=== PATIENT | male | born 1935 | race Caucasian/White ===

== ENCOUNTER 2018-06-12 05:53 | Inpatient (IN) | payer MEDICARE, MEDICAID ==
[~2018-06-12] VITALS: Ht 165.1 cm; Wt 80.7 kg
[2018-06-12] MEDS ORDERED: DEXT 5%/LACTATED RINGERS 1,000 ML IV SCH (07:45)
[2018-06-12 07:55] LABS: BASOPHILS % 0.4 % (0.0-2.0); EOSINOPHILS % 1.7 % (0.0-5.0); HEMATOCRIT. 35.3 % (42.0-52.0); HEMOGLOBIN. 11.5 g/dL (14.0-18.0); LYMPHOCYTES % 15.3 % (20.0-50.0); MEAN CORPUSCULAR HEMOGLOBIN 26.1 pg (28.0-32.0); MEAN PLATELET VOLUME 7.6 fl (7.4-10.4); MONOCYTES % 7.5 % (2.0-8.0); NEUTROPHILS % 75.1 % (40.0-76.0); PLATELET 268 x1000/uL (130-400); RED BLOOD CELL COUNT 4.41 mill/uL (4.7-6.1); RED CELL DISTRIBUTION WIDTH 17.6 % (11.6-14.6)
[2018-06-12] MEDS ORDERED: THROMBIN (BOVINE) 5000 UNITS/VIAL TOP ONE ×2 (07:56→07:57)
[2018-06-12 07:57] LABS: CLARITY URINE CLEAR (CLEAR); COLOR URINE YELLOW (YELLOW); KETONES URINE NEGATIVE (NEGATIVE); LEUKOCYTE ESTERASE URINE NEGATIVE (NEGATIVE); NITRITE URINE NEGATIVE (NEGATIVE); OCCULT BLOOD URINE NEGATIVE (NEGATIVE); PROTEIN URINE NEGATIVE (NEGATIVE); SPECIFIC GRAVITY URINE 1.007 (1.005-1.030); UROBILINOGEN URINE 0.2 E.U./dL (0.2-1.0)
[2018-06-12] MEDS ORDERED: NORMAL SALINE 0.9% 10 ML SYR ONE (07:57)
[2018-06-12] MEDS ORDERED: BACITRACIN 50,000 UNITS/VIAL ONE (07:59)
[2018-06-12] MEDS ORDERED: LIDOCAINE HCL/EPINEPHRINE 1%-EPI 1:100,000 20 ML VIAL ONE (07:59)
[2018-06-12 08:01] LABS: CHLORIDE 110 mEq/L (98-107)
[2018-06-12 08:04] LABS: INR 1.1; PROTHROMBIN TIME 10.9 sec (9.1-11.1)
[2018-06-12] MEDS ORDERED: HYDROMORPHONE HCL/PF 2MG/ML (OR) ONE (09:34)
[2018-06-12] MEDS ORDERED: ROCURONIUM BROMIDE 10MG/ML VIAL 5ML IV ONE (09:35)
[2018-06-12] MEDS ORDERED: MIDAZOLAM HCL 2 MG/2 ML VIAL ONE (09:35)
[2018-06-12] MEDS ORDERED: PROPOFOL 200MG/20ML VIAL IV ONE (09:35)
[2018-06-12] MEDS ORDERED: FENTANYL CITRATE/PF 50MCG/ML 5ML VIAL ONE (09:35)
[2018-06-12] MEDS ORDERED: HYDROCODONE/APAP 7.5/325MG 1 TAB TABLET PO PRN (09:45)
[2018-06-12] MEDS ORDERED: GABA-531 PO (09:45)
[2018-06-12] MEDS ORDERED: TAMS0.4C31 PO (09:45)
[2018-06-12] MEDS ORDERED: LISI10TA5 PO (09:45)
[2018-06-12] MEDS ORDERED: GLIP10TA10 PO (09:45)
[2018-06-12] MEDS ORDERED: CLONIDINE 0.1MG TABLET PO PRN (09:45)
[2018-06-12] MEDS ORDERED: ONDANSETRON HCL 4MG/2ML INJ IV PRN (09:45)
[2018-06-12] MEDS ORDERED: FERR325T6 PO (09:45)
[2018-06-12] MEDS ORDERED: LISI-186 PO (09:45)
[2018-06-12] MEDS ORDERED: METF-415 PO (09:45)
[2018-06-12] MEDS ORDERED: ASPI-1159 PO (09:45)
[2018-06-12] MEDS ORDERED: DEXTROSE 50% WATER 50ML SYRINGE IV ONE (11:10)
[2018-06-12] MEDS ORDERED: GLYCOPYRROLATE 0.2 MG/ML 2ML VIAL ONE (12:22)
[2018-06-12] MEDS ORDERED: MORPHINE SULFATE 4 MG/ML CPJ (NOT FOR IM USE) IV PRN (12:45)
[2018-06-12] MEDS ORDERED: CEFAZOLIN SODIUM 1000MG/VIAL IV SCH (14:00)
[2018-06-12] MEDS ORDERED: ONDANSETRON INJ IV PRN (14:15)
[2018-06-12] MEDS ORDERED: NALOXONE INJ IV PRN (14:15)
[2018-06-12] MEDS ORDERED: HYDROMORPHONE PCA 10MG/50ML IV PRN (14:15)
[2018-06-12] MEDS ORDERED: DIPHENHYDRAMINE INJ IV PRN (14:15)
[2018-06-12] MEDS ORDERED: MORPHINE PCA 50MG/50ML IV PRN (14:15)
[2018-06-12 16:00] VITALS: BP 111/89
[2018-06-12 17:16] VITALS: BP 111/89
[2018-06-12] MEDS: DEXT 5%/LACTATED RINGERS 1,000 ML IV SCH (17:20)
[2018-06-12 20:00] VITALS: BP 133/71
[2018-06-12] MEDS: CEFAZOLIN 1000MG PREMIX 50 ML IV SCH (21:29)
[2018-06-13] VITALS: BP 128/52
[2018-06-13 04:00] VITALS: BP 103/57
[2018-06-13] MEDS: CEFAZOLIN 1000MG PREMIX 50 ML IV SCH ×3 (06:02→21:45)
[2018-06-13 08:00] VITALS: BP 119/62
[2018-06-13 12:00] VITALS: BP 133/65
[2018-06-13 16:00] VITALS: BP 129/71
[2018-06-13 20:00] VITALS: BP 156/71
[2018-06-13] MEDS: DEXT 5%/LACTATED RINGERS 1,000 ML IV SCH (21:47)
[2018-06-13] MEDS ORDERED: DEXTROSE 50% WATER 50ML SYRINGE IV PRN (23:15)
[2018-06-13 23:33] LABS: TOTAL IRON BINDING CAPACITY 288 ug/dL (250-450)
[2018-06-14] VITALS: BP 126/66
[2018-06-14 04:00] VITALS: BP 145/72
[2018-06-14] MEDS: CEFAZOLIN 1000MG PREMIX 50 ML IV SCH ×3 (06:09→22:03)
[2018-06-14] MEDS: INSULIN LISPRO 100 UNITS/ML SUBCUT SCH ×4 (07:10→21:00)
[2018-06-14] MEDS: BLOOD SUGAR DIAGNOSTIC STRIP TEST SCH ×4 (07:20→21:00)
[2018-06-14 07:40] LABS: BASOPHILS % 0.4 % (0.0-2.0); CHLORIDE 102 mEq/L (98-107); HEMATOCRIT. 33.2 % (42.0-52.0); HEMOGLOBIN. 11.1 g/dL (14.0-18.0); LYMPHOCYTES % 7.6 % (20.0-50.0); MEAN CORPUSCULAR HEMOGLOBIN 26.4 pg (28.0-32.0); MEAN PLATELET VOLUME 7.8 fl (7.4-10.4); MONOCYTES % 8.7 % (2.0-8.0); NEUTROPHILS % 83.3 % (40.0-76.0); PLATELET 233 x1000/uL (130-400); RED CELL DISTRIBUTION WIDTH 17.3 % (11.6-14.6)
[2018-06-14 08:00] VITALS: BP 145/70
[2018-06-14] MEDS: DEXT 5%/LACTATED RINGERS 1,000 ML IV SCH (09:36)
[2018-06-14 12:00] VITALS: BP 155/67
[2018-06-14] MEDS ORDERED: ACETAMINOPHEN 325MG TABLET PO PRN (13:30)
[2018-06-14 16:00] VITALS: BP 163/76
[2018-06-14] MEDS: DOCUSATE SODIUM 100MG CAPSULE PO SCH (16:55)
[2018-06-14] MEDS: FERROUS SULFATE 325MG TABLET PO SCH (18:02)
[2018-06-14 20:00] VITALS: BP 162/81
[2018-06-14] MEDS ORDERED: POLYETHYLENE GLYCOL 3350 (17GM) 1 DOSE PACK PO SCH (21:00)
[2018-06-15] VITALS: BP 139/74
[2018-06-15 04:00] VITALS: BP 125/53
[2018-06-15] MEDS: DEXT 5%/LACTATED RINGERS 1,000 ML IV SCH ×2 (04:40→08:47)
[2018-06-15] MEDS: PANTOPRAZOLE 40MG DR TABLET PO SCH ×2 (06:56→08:39)
[2018-06-15] MEDS: BLOOD SUGAR DIAGNOSTIC STRIP TEST SCH ×3 (06:58→17:20)
[2018-06-15 08:00] VITALS: BP 115/61
[2018-06-15 08:09] LABS: BASOPHILS % 0.3 % (0.0-2.0); EOSINOPHILS % 0.1 % (0.0-5.0); HEMATOCRIT. 29.5 % (42.0-52.0); HEMOGLOBIN. 9.9 g/dL (14.0-18.0); MEAN CORPUSCULAR HEMOGLOBIN 26.5 pg (28.0-32.0); MEAN PLATELET VOLUME 7.8 fl (7.4-10.4); MONOCYTES % 9.6 % (2.0-8.0); PLATELET 206 x1000/uL (130-400); RED BLOOD CELL COUNT 3.73 mill/uL (4.7-6.1); RED CELL DISTRIBUTION WIDTH 16.8 % (11.6-14.6)
[2018-06-15 08:18] LABS: CHLORIDE 98 mEq/L (98-107)
[2018-06-15] MEDS: DOCUSATE SODIUM 100MG CAPSULE PO SCH ×2 (08:39→17:00)
[2018-06-15] MEDS: FERROUS SULFATE 325MG TABLET PO SCH ×2 (08:39→12:50)
[2018-06-15] MEDS: INSULIN LISPRO 100 UNITS/ML SUBCUT SCH ×3 (08:45→18:58)
[2018-06-15 12:00] VITALS: BP 131/57
[2018-06-15 16:00] VITALS: BP_SYST 137; BP_SYST 165; BP_DIAS 54; BP_DIAS 72
[2018-06-15] MEDS ORDERED: ZOLPIDEM TARTRATE 5MG TABLET PO PRN (16:45)
[2018-06-15] MEDS ORDERED: ALPRAZOLAM 0.5 MG TABLET PO NR (16:45)
[2018-06-15 17:54] VITALS: BP 165/72
== END 2018-06-15 18:54 | DRG 459 ==
LOC: OR 05:53 → 6EST 05:54
PROVIDERS: ADMIT Neurological Surgery; ATTEND Internal Medicine
PROC: 0SG0071 Fusion of Lumbar Vertebral Joint with Autologous Tissue Substitute, Posterior Approach, Posterior Column, Open Approach (ICD-10-PCS; principal; 2018-06-12)
PROC: 01NB0ZZ Release Lumbar Nerve, Open Approach (ICD-10-PCS; 2018-06-12)
PROC: 0SB20ZZ Excision of Lumbar Vertebral Disc, Open Approach (ICD-10-PCS; 2018-06-12)
DX: M48.061 Spinal stenosis, lumbar region without neurogenic claudication (principal); G92 Toxic encephalopathy; E46 Unspecified protein-calorie malnutrition; E87.1 Hypo-osmolality and hyponatremia; G82.20 Paraplegia, unspecified; M51.26 Other intervertebral disc displacement, lumbar region; I10 Essential (primary) hypertension; D50.9 Iron deficiency anemia, unspecified; M47.816 Spondylosis without myelopathy or radiculopathy, lumbar region; E11.65 Type 2 diabetes mellitus with hyperglycemia; R26.9 Unspecified abnormalities of gait and mobility; Z79.82 Long term (current) use of aspirin; Z79.84 Long term (current) use of oral hypoglycemic drugs; Z79.899 Other long term (current) drug therapy; Z85.07 Personal history of malignant neoplasm of pancreas; Z92.21 Personal history of antineoplastic chemotherapy; Z92.3 Personal history of irradiation; Z68.29 Body mass index [BMI] 29.0-29.9, adult; Z90.49 Acquired absence of other specified parts of digestive tract; Z82.49 Family history of ischemic heart disease and other diseases of the circulatory system; Z83.3 Family history of diabetes mellitus
CPT/HCPCS: 36415; 72100; 76000; 80048; 82728; 82962; 83036; 83540; 83550; 84145; 88304; 88311; 95925; 95926; 95928; 95929; 97116; 97162; 97166; 97530; C1713; J0690; J1170; J1815; J2250; J2405; J2704; J3010; J3490; J7040; J7121

== ENCOUNTER 2018-06-15 18:45 | Inpatient (IN) | payer MEDICARE, MEDICAID ==
[~2018-06-15] VITALS: Ht 165.1 cm; Wt 80.7 kg
[~2018-06-15 18:45] MED LIST: ASPI-1159 PO; FERR325T6 PO; GABA-531 PO; GLIP10TA10 PO; LISI-186 PO; LISI10TA5 PO; METF-415 PO; TAMS0.4C31 PO
[2018-06-15 20:00] VITALS: BP 129/63
[2018-06-15] MEDS: INSULIN LISPRO 100 UNITS/ML SUBCUT SCH (22:00)
[2018-06-15] MEDS ORDERED: DEXTROSE 50% WATER 50ML SYRINGE IV PRN (22:00)
[2018-06-15] MEDS ORDERED: MORPHINE SULFATE 4 MG/ML CPJ (NOT FOR IM USE) IV PRN (22:00)
[2018-06-15] MEDS ORDERED: ACETAMINOPHEN 325MG TABLET PO PRN (22:00)
[2018-06-15] MEDS ORDERED: CLONIDINE 0.1MG TABLET PO PRN (22:00)
[2018-06-15] MEDS ORDERED: HYDROCODONE/APAP 7.5/325MG 1 TAB TABLET PO PRN (22:00)
[2018-06-15] MEDS ORDERED: ONDANSETRON HCL 4MG/2ML INJ IV PRN (22:00)
[2018-06-15] MEDS: POLYETHYLENE GLYCOL 3350 (17GM) 1 DOSE PACK PO SCH (22:31)
[2018-06-15] MEDS: BLOOD SUGAR DIAGNOSTIC STRIP TEST SCH (22:31)
[2018-06-16] MEDS: PANTOPRAZOLE 40MG DR TABLET PO SCH (06:36)
[2018-06-16] MEDS: BLOOD SUGAR DIAGNOSTIC STRIP TEST SCH ×4 (06:36→20:45)
[2018-06-16] MEDS: INSULIN LISPRO 100 UNITS/ML SUBCUT SCH ×4 (06:40→21:13)
[2018-06-16 06:45] LABS: BASOPHILS % 0.3 % (0.0-2.0); EOSINOPHILS % 0.4 % (0.0-5.0); HEMATOCRIT. 31.5 % (42.0-52.0); HEMOGLOBIN. 10.6 g/dL (14.0-18.0); MEAN CORPUSCULAR HEMOGLOBIN 26.4 pg (28.0-32.0); MEAN CORPUSCULAR VOLUME 78.8 fL (80.0-94.0); MEAN PLATELET VOLUME 8.1 fl (7.4-10.4); MONOCYTES % 8.5 % (2.0-8.0); NEUTROPHILS % 81.8 % (40.0-76.0); PLATELET 249 x1000/uL (130-400); RED CELL DISTRIBUTION WIDTH 16.6 % (11.6-14.6)
[2018-06-16 08:00] VITALS: BP 132/51
[2018-06-16 08:08] VITALS: BP 138/72
[2018-06-16] MEDS: DOCUSATE SODIUM 100MG CAPSULE PO SCH ×2 (08:49→18:04)
[2018-06-16] MEDS: FERROUS SULFATE 325MG TABLET PO SCH ×3 (08:49→18:03)
[2018-06-16 09:05] LABS: CHLORIDE 97 mEq/L (98-107)
[2018-06-16 20:00] VITALS: BP 156/70
[2018-06-16] MEDS: POLYETHYLENE GLYCOL 3350 (17GM) 1 DOSE PACK PO SCH (20:34)
[2018-06-17] MEDS: BLOOD SUGAR DIAGNOSTIC STRIP TEST SCH ×4 (06:16→21:17)
[2018-06-17] MEDS: PANTOPRAZOLE 40MG DR TABLET PO SCH (06:16)
[2018-06-17 06:26] LABS: BASOPHILS % 0.1 % (0.0-2.0); EOSINOPHILS % 0.3 % (0.0-5.0); HEMATOCRIT. 32.1 % (42.0-52.0); HEMOGLOBIN. 10.8 g/dL (14.0-18.0); LYMPHOCYTES % 11.3 % (20.0-50.0); MEAN CORPUSCULAR HEMOGLOBIN 26.5 pg (28.0-32.0); MEAN CORPUSCULAR VOLUME 78.8 fL (80.0-94.0); MEAN PLATELET VOLUME 7.6 fl (7.4-10.4); MONOCYTES % 10.6 % (2.0-8.0); NEUTROPHILS % 77.7 % (40.0-76.0); PLATELET 264 x1000/uL (130-400); RED BLOOD CELL COUNT 4.07 mill/uL (4.7-6.1); RED CELL DISTRIBUTION WIDTH 16.6 % (11.6-14.6)
[2018-06-17] MEDS: INSULIN LISPRO 100 UNITS/ML SUBCUT SCH ×4 (06:44→21:00)
[2018-06-17 06:57] LABS: CHLORIDE 94 mEq/L (98-107)
[2018-06-17 07:14] LABS: HDL CHOLESTEROL 38 mg/dL (40-59)
[2018-06-17 07:15] LABS: LDL CHOLESTEROL 42 mg/dL (5-100)
[2018-06-17] MEDS: FERROUS SULFATE 325MG TABLET PO SCH ×3 (08:48→16:16)
[2018-06-17] MEDS: DOCUSATE SODIUM 100MG CAPSULE PO SCH ×2 (08:48→16:16)
[2018-06-17] MEDS ORDERED: MAGNESIUM 4 G PREMIX 100 ML IV NR (11:00)
[2018-06-17] MEDS ORDERED: LACTULOSE 20G/30ML UDC PO PRN (12:45)
[2018-06-17] MEDS: GLIPIZIDE 10MG TABLET PO SCH ×2 (14:40→16:16)
[2018-06-17] MEDS: LISINOPRIL 5MG TABLET PO SCH ×2 (14:44→21:17)
[2018-06-17] MEDS: TAMSULOSIN HCL 0.4MG SR CAPSULE PO SCH (14:44)
[2018-06-17] MEDS ORDERED: ONDANSETRON HCL 4MG TABLET PO PRN (15:30)
[2018-06-17] MEDS ORDERED: MAGNESIUM 2 G PREMIX 50 ML IV NR (18:00)
[2018-06-17] MEDS: LACTULOSE 20G/30ML UDC PO SCH ×2 (18:35→21:00)
[2018-06-17 20:00] VITALS: BP 122/59
[2018-06-17] MEDS: POLYETHYLENE GLYCOL 3350 (17GM) 1 DOSE PACK PO SCH (21:17)
[2018-06-18] MEDS: BLOOD SUGAR DIAGNOSTIC STRIP TEST SCH ×4 (06:19→21:00)
[2018-06-18] MEDS: PANTOPRAZOLE 40MG DR TABLET PO SCH (06:19)
[2018-06-18 06:29] LABS: BASOPHILS % 0.2 % (0.0-2.0); EOSINOPHILS % 0.8 % (0.0-5.0); HEMATOCRIT. 31.2 % (42.0-52.0); HEMOGLOBIN. 10.4 g/dL (14.0-18.0); LYMPHOCYTES % 12.4 % (20.0-50.0); MEAN CORPUSCULAR VOLUME 78.4 fL (80.0-94.0); MEAN PLATELET VOLUME 7.6 fl (7.4-10.4); MONOCYTES % 9.8 % (2.0-8.0); NEUTROPHILS % 76.8 % (40.0-76.0); PLATELET 266 x1000/uL (130-400); RED BLOOD CELL COUNT 3.98 mill/uL (4.7-6.1); RED CELL DISTRIBUTION WIDTH 16.4 % (11.6-14.6)
[2018-06-18 06:36] LABS: CHLORIDE 94 mEq/L (98-107)
[2018-06-18 06:44] LABS: PROSTRATE SPECIFIC AG TOTAL 2.18 ng/mL (0.0-4.0)
[2018-06-18 06:59] LABS: PHOSPHORUS 3.5 mg/dL (2.5-4.9); TOTAL IRON BINDING CAPACITY 232 ug/dL (250-450)
[2018-06-18 07:02] LABS: CREATINE KINASE 88 IU/L (39-308)
[2018-06-18 07:59] VITALS: BP 119/63
[2018-06-18] MEDS: GLIPIZIDE 10MG TABLET PO SCH ×2 (08:48→17:07)
[2018-06-18] MEDS: FERROUS SULFATE 325MG TABLET PO SCH ×3 (08:48→17:07)
[2018-06-18] MEDS: LACTULOSE 20G/30ML UDC PO SCH ×2 (08:48→17:07)
[2018-06-18] MEDS: LISINOPRIL 5MG TABLET PO SCH ×2 (08:48→22:36)
[2018-06-18] MEDS: DOCUSATE SODIUM 100MG CAPSULE PO SCH ×2 (08:49→17:07)
[2018-06-18] MEDS: TAMSULOSIN HCL 0.4MG SR CAPSULE PO SCH (08:49)
[2018-06-18] MEDS: INSULIN LISPRO 100 UNITS/ML SUBCUT SCH ×4 (09:00→21:00)
[2018-06-18] MEDS ORDERED: POTASSIUM CHLORIDE 20MEQ TABLET SR PO SCH (13:00)
[2018-06-18 20:00] VITALS: BP 137/65
[2018-06-18] MEDS: POLYETHYLENE GLYCOL 3350 (17GM) 1 DOSE PACK PO SCH (21:00)
[2018-06-19] MEDS: BLOOD SUGAR DIAGNOSTIC STRIP TEST SCH ×4 (06:11→20:49)
[2018-06-19] MEDS: PANTOPRAZOLE 40MG DR TABLET PO SCH (06:12)
[2018-06-19] MEDS: INSULIN LISPRO 100 UNITS/ML SUBCUT SCH ×4 (06:19→20:39)
[2018-06-19 06:26] LABS: BASOPHILS % 0.5 % (0.0-2.0); EOSINOPHILS % 1.6 % (0.0-5.0); HEMATOCRIT. 30.6 % (42.0-52.0); HEMOGLOBIN. 10.3 g/dL (14.0-18.0); LYMPHOCYTES % 17.5 % (20.0-50.0); MEAN CORPUSCULAR HEMOGLOBIN 26.5 pg (28.0-32.0); MEAN PLATELET VOLUME 7.4 fl (7.4-10.4); MONOCYTES % 10.2 % (2.0-8.0); NEUTROPHILS % 70.2 % (40.0-76.0); PLATELET 269 x1000/uL (130-400); RED BLOOD CELL COUNT 3.87 mill/uL (4.7-6.1); RED CELL DISTRIBUTION WIDTH 16.9 % (11.6-14.6)
[2018-06-19 08:05] LABS: CHLORIDE 100 mEq/L (98-107)
[2018-06-19 08:13] VITALS: BP 131/87
[2018-06-19] MEDS: LISINOPRIL 5MG TABLET PO SCH ×2 (09:32→20:48)
[2018-06-19] MEDS: GLIPIZIDE 10MG TABLET PO SCH ×2 (09:32→18:14)
[2018-06-19] MEDS: FERROUS SULFATE 325MG TABLET PO SCH ×3 (09:32→18:14)
[2018-06-19] MEDS: DOCUSATE SODIUM 100MG CAPSULE PO SCH ×2 (09:32→17:00)
[2018-06-19] MEDS: TAMSULOSIN HCL 0.4MG SR CAPSULE PO SCH (09:32)
[2018-06-19] MEDS: LACTULOSE 20G/30ML UDC PO SCH ×2 (09:33→17:00)
[2018-06-19 20:00] VITALS: BP 114/59
[2018-06-19] MEDS: POLYETHYLENE GLYCOL 3350 (17GM) 1 DOSE PACK PO SCH (20:38)
[2018-06-19] MEDS: ZOLPIDEM TARTRATE 5MG TABLET PO PRN (20:49)
[2018-06-20] MEDS: PANTOPRAZOLE 40MG DR TABLET PO SCH (06:07)
[2018-06-20] MEDS: BLOOD SUGAR DIAGNOSTIC STRIP TEST SCH ×4 (06:07→21:00)
[2018-06-20 07:15] LABS: CHLORIDE 100 mEq/L (98-107)
[2018-06-20 07:30] LABS: BASOPHILS % 0.5 % (0.0-2.0); EOSINOPHILS % 1.2 % (0.0-5.0); HEMATOCRIT. 32.1 % (42.0-52.0); HEMOGLOBIN. 10.6 g/dL (14.0-18.0); MEAN CORPUSCULAR HEMOGLOBIN 26.2 pg (28.0-32.0); MEAN CORPUSCULAR VOLUME 79.5 fL (80.0-94.0); MEAN PLATELET VOLUME 7.6 fl (7.4-10.4); MONOCYTES % 7.7 % (2.0-8.0); NEUTROPHILS % 73.6 % (40.0-76.0); PLATELET 306 x1000/uL (130-400); RED BLOOD CELL COUNT 4.03 mill/uL (4.7-6.1); RED CELL DISTRIBUTION WIDTH 16.9 % (11.6-14.6)
[2018-06-20 08:07] VITALS: BP 108/64
[2018-06-20] MEDS: LISINOPRIL 5MG TABLET PO SCH ×2 (08:45→21:10)
[2018-06-20] MEDS: FERROUS SULFATE 325MG TABLET PO SCH ×3 (08:45→17:17)
[2018-06-20] MEDS: DOCUSATE SODIUM 100MG CAPSULE PO SCH ×2 (08:45→17:00)
[2018-06-20] MEDS: TAMSULOSIN HCL 0.4MG SR CAPSULE PO SCH (08:45)
[2018-06-20] MEDS: GLIPIZIDE 10MG TABLET PO SCH ×2 (08:46→17:17)
[2018-06-20] MEDS: LACTULOSE 20G/30ML UDC PO SCH ×2 (08:46→17:00)
[2018-06-20] MEDS: INSULIN LISPRO 100 UNITS/ML SUBCUT SCH ×4 (08:46→21:00)
[2018-06-20 20:00] VITALS: BP 130/66
[2018-06-20] MEDS: POLYETHYLENE GLYCOL 3350 (17GM) 1 DOSE PACK PO SCH (21:00)
[2018-06-20] MEDS: ZOLPIDEM TARTRATE 5MG TABLET PO PRN (21:19)
[2018-06-21] MEDS: BLOOD SUGAR DIAGNOSTIC STRIP TEST SCH ×4 (06:30→21:22)
[2018-06-21 08:00] VITALS: BP_SYST 169; BP_SYST 93; BP_DIAS 47; BP_DIAS 78
[2018-06-21] MEDS: INSULIN LISPRO 100 UNITS/ML SUBCUT SCH ×4 (09:00→21:00)
[2018-06-21] MEDS: LISINOPRIL 5MG TABLET PO SCH ×2 (09:00→21:18)
[2018-06-21] MEDS: LACTULOSE 20G/30ML UDC PO SCH (09:00)
[2018-06-21] MEDS: FERROUS SULFATE 325MG TABLET PO SCH ×3 (09:31→16:41)
[2018-06-21] MEDS: FAMOTIDINE 20MG TABLET PO SCH ×2 (09:31→21:19)
[2018-06-21] MEDS: TAMSULOSIN HCL 0.4MG SR CAPSULE PO SCH (09:31)
[2018-06-21] MEDS: GLIPIZIDE 10MG TABLET PO SCH ×2 (09:32→16:41)
[2018-06-21] MEDS: DOCUSATE SODIUM 100MG CAPSULE PO SCH ×2 (09:32→16:41)
[2018-06-21 20:00] VITALS: BP 133/69
[2018-06-21] MEDS: POLYETHYLENE GLYCOL 3350 (17GM) 1 DOSE PACK PO SCH (21:18)
[2018-06-22] MEDS: BLOOD SUGAR DIAGNOSTIC STRIP TEST SCH (06:31)
[2018-06-22] MEDS: INSULIN LISPRO 100 UNITS/ML SUBCUT SCH (06:31)
[2018-06-22 06:38] LABS: BASOPHILS % 0.3 % (0.0-2.0); EOSINOPHILS % 1.4 % (0.0-5.0); HEMATOCRIT. 33.9 % (42.0-52.0); HEMOGLOBIN. 11.3 g/dL (14.0-18.0); LYMPHOCYTES % 14.2 % (20.0-50.0); MEAN CORPUSCULAR HEMOGLOBIN 26.3 pg (28.0-32.0); MEAN CORPUSCULAR VOLUME 79.1 fL (80.0-94.0); MEAN PLATELET VOLUME 7.2 fl (7.4-10.4); MONOCYTES % 6.2 % (2.0-8.0); NEUTROPHILS % 77.9 % (40.0-76.0); PLATELET 327 x1000/uL (130-400); RED BLOOD CELL COUNT 4.28 mill/uL (4.7-6.1); RED CELL DISTRIBUTION WIDTH 16.6 % (11.6-14.6)
[2018-06-22 06:51] LABS: CHLORIDE 100 mEq/L (98-107)
[2018-06-22 08:27] VITALS: BP 104/56
[2018-06-22] MEDS: LISINOPRIL 5MG TABLET PO SCH (09:00)
[2018-06-22] MEDS: GLIPIZIDE 10MG TABLET PO SCH (09:08)
[2018-06-22] MEDS: TAMSULOSIN HCL 0.4MG SR CAPSULE PO SCH (09:08)
[2018-06-22] MEDS: DOCUSATE SODIUM 100MG CAPSULE PO SCH (09:08)
[2018-06-22] MEDS: FAMOTIDINE 20MG TABLET PO SCH (09:08)
[2018-06-22] MEDS: FERROUS SULFATE 325MG TABLET PO SCH (09:09)
[2018-06-22] MEDS ORDERED: FAMO20TA8 PO (09:38)
[2018-06-22] MEDS ORDERED: POLY17PO3 PO (09:38)
[2018-06-22] MEDS ORDERED: DOCU-138 PO (09:38)
[2018-06-22 10:13] VITALS: BP 104/56
[2018-06-22] MEDS ORDERED: ASPI-1159 PO (10:45)
[2018-06-22 19:11] LABS: 25-HYDROXY VITAMIN D3 8.3 ng/mL (.)
== END 2018-06-22 11:55 | disposition home health service (06) | DRG 551 ==
PROVIDERS: ADMIT Physical Medicine & Rehabilitation Spinal Cord Injury Medicine; ATTEND Internal Medicine
DX: M48.061 Spinal stenosis, lumbar region without neurogenic claudication (principal); E43 Unspecified severe protein-calorie malnutrition; G92 Toxic encephalopathy; E87.1 Hypo-osmolality and hyponatremia; G82.20 Paraplegia, unspecified; R00.1 Bradycardia, unspecified; R20.0 Anesthesia of skin; R26.9 Unspecified abnormalities of gait and mobility; R53.81 Other malaise; D50.9 Iron deficiency anemia, unspecified; R50.82 Postprocedural fever; I10 Essential (primary) hypertension; E11.9 Type 2 diabetes mellitus without complications; E87.8 Other disorders of electrolyte and fluid balance, not elsewhere classified; I44.0 Atrioventricular block, first degree; M47.816 Spondylosis without myelopathy or radiculopathy, lumbar region; F32.9 Major depressive disorder, single episode, unspecified; R74.0 Nonspecific elevation of levels of transaminase and lactic acid dehydrogenase [LDH]; Z79.899 Other long term (current) drug therapy; Z79.82 Long term (current) use of aspirin; Z92.21 Personal history of antineoplastic chemotherapy; Z92.3 Personal history of irradiation; Z85.07 Personal history of malignant neoplasm of pancreas; Z79.84 Long term (current) use of oral hypoglycemic drugs; Z90.49 Acquired absence of other specified parts of digestive tract; Z83.3 Family history of diabetes mellitus; Z82.49 Family history of ischemic heart disease and other diseases of the circulatory system; G89.29 Other chronic pain; Z68.29 Body mass index [BMI] 29.0-29.9, adult
CPT/HCPCS: 36415; 80048; 80061; 80076; 82306; 82550; 82607; 82728; 82746; 82962; 83036; 83540; 83550; 83735; 83930; 83935; 84100; 84134; 84153; 84443; 84484; 92523; 93005; 93306; 93970; 97110; 97116; 97162; 97166; 97530; 97535; C1893; J1815; J3475; G0103